=== PATIENT | male | born 1950 | race Caucasian/White ===

== ENCOUNTER 2017-11-04 07:39 | Outpatient (CLI) | payer MEDICARE ==
--- NOTE | 2017-11-04 10:30 | CT ---
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 History of chemother apy. Patient has Stage IV prostate cancer. COMPARISON: CT angiogram thorax on 05/20/[address] abdomen and pelvis on 03/13/17. FINDINGS: CT THORAX: The previously described filling defect within the ventricular apex is again present and unchanged. A gain, there is overall thinning of the left ventricular apical wall in this region. Findings may be r elated to prior infarction with persistent thrombus in this region. Vascular calcifications are seen in the coronary arteries, as well as involving the thoracic aorta. There is linear scarring versus atelectasis at the right lung base. The pleural based nodules at the left lung base in the region of the major fissure are again present, each of which measure approximat ian 5.0 mm. There are also much smaller nodular densities seen at the more superior aspect of the amy or fissure also present on the prior exam, one of which measures 4.0 mm and the second measures much less than 4.0 mm. These areas could be related to focal nodular areas of pleural thickening but are s table when compared to the prior exam. No additional pulmonary nodule is seen and there is no pleural effusion identified. Two tiny, less than 4.0 mm, sclerotic densities are seen within the right glenoid, which are difficul t to characterize, but could be related to tiny bone islands, although this is difficult to definitiv ian confirm. No additional lytic or sclerotic osseous lesions are appreciated. CT ABDOMEN/PELVIS: The liver, spleen, pancreas, bilateral adrenal glands, kidneys, opacified bowel, and urinary bladder demonstrate a normal CT appearance. There is colonic diverticulosis. The appendix is visualized and normal in caliber. There has been interval decrease in size of the aortocaval lymphadenopathy when compared to the prior exam. The largest left paracaval lymph node previously measuring 2.7 cm in maximal dimensions now me asures 1.2 cm in maximal dimensions. A few other lymph nodes are also present, but these lymph nodes have also decreased in size when compared to the prior exam. Retrocrural lymph nodes previously kiersten uring 11.0 mm in short axis now measures 8.0 mm in short axis. No new enlarged lymph nodes are seen. The larger lymph nodes within the pelvis have also diminished in size, but do persist. The large lym ph node along the left iliac chain previously measuring 6.8 cm in maximal dimensions now measure 3.9 is maximal dimensions. The right iliac chain lymph node previously measuring 3.1 cm in maximal dimen neil now measures 1.6 cm in maximal dimension. There are a few tiny, less than 4.0 mm, sclerotic densities seen in each femoral head, which are stab le from the prior study. These sclerotic densities are felt to most likely be attributable to bone is lands, although they are difficult to definitively characterize due to very small size. Mild atherosclerotic plaque and calcifications are seen in the abdominal aorta and iliac arteries. In cidental note is made of a retroaortic left renal vein. IMPRESSION: 1. Improvement in abdominal and pelvic lymphadenopathy as described above. 2. Stable subpleural nodules along the major fissure on the left. No new discrete pulmonary nodule o r mass is seen. 3. Intraluminal thrombus at the ventricular apex with calcification of the left ventricular apical w all, as well as apical thinning, and these findings may be related to prior infarction. This is stabl e from prior exam. 4. Tiny sclerotic densities within the right glenoid, as well as each femoral head, which are felt t o most likely be related to bone islands, although these sclerotic densities are difficult to charact erize due to very small size. The sclerotic densities are stable when compared to prior exams. POS: YANN
[2017-11-04] MEDS ORDERED: Iopamidol 370 76% 100 ML VIAL ONE (13:49)
== END 2017-11-04 07:40 | disposition home or self-care (01) ==
LOC: CT 07:39
PROVIDERS: ATTEND Internal Medicine Hematology & Oncology
DX: C61 Malignant neoplasm of prostate (principal); C78.6 Secondary malignant neoplasm of retroperitoneum and peritoneum; R59.0 Localized enlarged lymph nodes; R91.8 Other nonspecific abnormal finding of lung field; I21.A9 Other myocardial infarction type
CPT/HCPCS: 71260; 74177

== ENCOUNTER 2019-01-22 12:04 | Observation (INO) | payer MEDICARE ==
[~2019-01-22 12:04] MED LIST: ISOVUE-370 76%-LOCM 1 ML ONE
[2019-01-22 13:31] LABS: #Lymphocytes 0.7 thou/uL (1.20-3.40); #Monocytes 0.7 thou/uL (0.11-0.59); #Neutrophils 3.6 thou/uL (1.40-6.50); %Basophils 0.3 % (0.0-1.0); %Monocytes 13.3 % (0.0-10.0); %Neutrophils 71.4 % (42.0-75.0); Hemoglobin 14.4 g/dL (14.0-18.0); Mean Corpuscular HGB CONC 33.2 g/dL (32.0-36.0); Mean Corpuscular Volume 93.2 fL (78.0-98.0); Mean Platelet Volume 6.5 fL (7.4-10.4); Platelet Count 218 thou/uL (130-400); RBC Distribution Width 12.8 % (11.5-14.5); Red Blood Cell (RBC) Count 4.65 mill/uL (4.70-6.10)
[2019-01-22 13:53] LABS: ALT (SGPT) 18 U/L (8-55); AST (SGOT) 23 U/L (5-34); Albumin 3.7 g/dL (3.4-4.8); Alkaline Phosphatase 77 U/L (40-150); Anion Gap 14 mmol/L (10-20); BUN (Urea Nitrogen) 12 mg/dL (8.4-25.7); Bilirubin, Total 0.3 mg/dL (0.2-1.2); CK (CPK) 191 U/L (30-200); Calc. Creatinine Clearance 0 mL/min (70-130); Calcium 8.9 mg/dL (7.8-10.44); Carbon Dioxide 26 mmol/L (23-31); Chloride 102 mmol/L (98-107); Estimated GFR-MDRD 86; Globulin 2.6 g/dL (2.4-3.5); Glucose 93 mg/dL (80-115); Potassium 4.3 mmol/L (3.5-5.1); Protein, Total 6.3 g/dL (5.8-8.1); Sodium 138 mmol/L (136-145)
[2019-01-22] MEDS ORDERED: methylPREDNISolone Sod Succ/PF 125 MG/2 ML VIAL ONE (15:10)
--- NOTE | 2019-01-22 15:24 | CT ---
CT ARTERIOGRAM CHEST WITH IV CONTRAST AND 3D MIP IMAGING: Date: 01/22/19 HISTORY: Chest pain. Dyspnea. COMPARISON: 11/04/17. FINDINGS: Good contrast opacification of the pulmonary arteries and thoracic aorta with normal branching of the great vessels at the aortic arch. Minimal arterial calcification. Mild atelectasis at the lung bases . No mediastinal adenopathy is apparent. Degenerative changes of the thoracic spine. IMPRESSION: No CT evidence of pulmonary embolus. POS: GENE
[2019-01-22 16:55] LABS: Troponin I 0.013 ng/mL (< 0.028)
== END 2019-01-22 17:20 | disposition home or self-care (01) ==
LOC: ERS 12:04 → ERHOLD 16:00
PROVIDERS: ADMIT Family Medicine; ATTEND Family Medicine
DX: R06.00 Dyspnea, unspecified (principal); R09.02 Hypoxemia; R05 Cough; I10 Essential (primary) hypertension; Z85.46 Personal history of malignant neoplasm of prostate; Z79.01 Long term (current) use of anticoagulants; Z79.899 Other long term (current) drug therapy
CPT/HCPCS: 71046; 71275; 80053; 82550; 83880; 84484 ×2; 85025; 87804 ×2; 94640; 96374; 99284; G0463; 36415; 99203; J2930; J7620; Q9966

== ENCOUNTER 2019-05-09 09:14 | Outpatient (CLI) | payer MEDICARE ==
--- NOTE | 2019-05-09 13:34 | NM ---
BONE SCAN: 05/09/19 Patient given 32 millicuries of technetium MDP IV. Whole body images obtained. INDICATION: Prostate neoplasm. Normal activity seen throughout the skeletal system. Increased activity at the left knee suggests DJD . No activity is seen that would indicate metastatic disease. IMPRESSION: No evidence of osseous metastasis. POS: OFF
== END 2019-05-09 09:15 | disposition home or self-care (01) ==
LOC: NM 09:14
PROVIDERS: ATTEND Internal Medicine Hematology & Oncology
DX: C61 Malignant neoplasm of prostate (principal); C78.6 Secondary malignant neoplasm of retroperitoneum and peritoneum
CPT/HCPCS: 78306; A9503

== ENCOUNTER 2019-05-17 07:26 | Outpatient (CLI) | payer MEDICARE ==
[2019-05-17 08:09] LABS: Estimated GFR-MDRD - POC Greater than 90
--- NOTE | 2019-05-17 08:51 | CT ---
CT Chest Abd Pelvis W Con HISTORY: Prostate cancer, secondary malignant neoplasm of retroperitoneum and peritoneum. Patient has had chemotherapy for cancer markers are rising. COMPARISON: Bone scan exam of 05/09/2019. CT of chest of 01/22/[address] chest abdomen and pelvis of 1 01/05/2017. FINDINGS: There is persistent scarring within the right lower lobe. The small 3 to 4 mm pleural-based nodular densities along the major fissure on the left are somewhat more difficult to visualize on today's exam but are all felt to be stable. These could indicate intrafissural none. There is no significant mediastinal, hilar or axillary adenopathy. The thoracic aorta is normal in ca liber. Coronary artery calcifications are present. CT of abdomen performed with intravenous contrast enhancement: There are diffuse fatty changes of the liver. The spleen pancreas and gallbladder regions appear unre markable. Right and left adrenal glands and right and left kidneys are normal in size. There are tiny subcentim eter periaortic and aortocaval lymph nodes, these appear stable as compared to the prior exam. The largest lymph node is a left periaortic node measuring 12 mm in maximum dimension seen on axial image 76 which is stable. The retrocrural lymph node on axial image 66 is the same if not slightly smaller than the previous exam. There is no significant mesenteric lymphadenopathy noted. CT of pelvis performed with contrast: The left external iliac chain lymph node is stable in size with a maximum dimension of 3.7 cm. A righ t external iliac chain node appears slightly smaller it measures in the 9 mm range as compared to 16 mm on the prior exam. No new lymphadenopathy is seen. The bladder is normal in appearance. View of osseous structures shows marked arthritic changes tiny bone islands are again noted within th e glenoid neck on the right. IMPRESSION: 1. Stable overall exam. There is been no significant change in the periaortic aortocaval or pelvic no wolfgang. Also there is been no significant change in size of the pulmonary nodules located along the major fissure on the left.
[2019-05-17] MEDS ORDERED: ISOVUE-370 76%-LOCM 1 ML ONE (09:27)
== END 2019-05-17 07:27 | disposition home or self-care (01) ==
LOC: BICCT 07:26
PROVIDERS: ATTEND Internal Medicine Hematology & Oncology
DX: C61 Malignant neoplasm of prostate (principal); C78.6 Secondary malignant neoplasm of retroperitoneum and peritoneum
CPT/HCPCS: 71260; 74177; 82565; Q9966

== ENCOUNTER 2024-11-10 10:29 | Emergency (ER) | payer MEDICARE ==
[2024-11-10 11:17] LABS: #Basophils 0.03 10x3/uL (0.0-0.2); %Basophils 0.2 % (0.0-1.0); %Eosinophils 1.1 % (0.0-10.0); %Lymphocytes 10.9 % (21.0-51.0); %Monocytes 5.5 % (0.0-10.0); %Neutrophils 81.8 % (42.0-75.0); Hematocrit 41.6 % (42.0-52.0); Mean Corpuscular HGB CONC 31.3 g/dL (32.0-36.0); Mean Corpuscular Hemoglobin 29.3 pg (27.0-31.0); Mean Corpuscular Volume 93.9 fL (78.0-98.0); Mean Platelet Volume 8.8 fL (7.4-10.4); Platelet Count 244 10x3/uL (130-400); RBC Distribution Width 14.8 % (11.5-14.5); Red Blood Cell (RBC) Count 4.43 mill/uL (4.70-6.10)
[2024-11-10 11:32] LABS: ALT (SGPT) 13 U/L (8-55); AST (SGOT) 14 U/L (5-34); Albumin 3.1 g/dL (3.4-4.8); Alkaline Phosphatase 81 U/L (40-110); Anion Gap 17 mmol/L (10-20); BUN (Urea Nitrogen) 14 mg/dL (8.4-25.7); Bilirubin, Total 0.7 mg/dL (0.2-1.2); Calc. Creatinine Clearance 0 mL/min (70-130); Calcium 8.8 mg/dL (7.8-10.44); Carbon Dioxide 28 mmol/L (23-31); Chloride 98 mmol/L (98-107); Estimated GFR 98; Globulin 3.4 g/dL (2.4-3.5); Glucose 97 mg/dL (83-110); Potassium 3.9 mmol/L (3.5-5.1); Protein, Total 6.5 g/dL (5.8-8.1); Sodium 139 mmol/L (136-145)
[2024-11-10 11:35] LABS: Prothrombin Time 13.3 sec (12.0-14.7)
[2024-11-10 11:36] LABS: PTT 29.5 sec (22.9-36.1)
[2024-11-10 11:38] LABS: Troponin I Less than 0.010 ng/mL (< 0.028)
== END 2024-11-10 14:49 | disposition home or self-care (01) ==
LOC: ERS 10:29
DX: R60.0 Localized edema (principal); I10 Essential (primary) hypertension; Z79.899 Other long term (current) drug therapy; Z79.82 Long term (current) use of aspirin
CPT/HCPCS: 36415; 71045; 80053; 83880; 84484; 85025; 85610; 85730; 93005; 93970